=== PATIENT | male | born 1975 | race African-American/Black ===

== ENCOUNTER 2022-02-27 15:23 | Emergency (ER) | payer SELFPAY ==
[~2022-02-27] VITALS: Ht 177.8 cm; Wt 110.0 kg
[2022-02-27 15:32] VITALS: BP 147/93
== END 2022-02-27 16:41 | disposition left against medical advice (07) ==
LOC: ER 15:23
DX: Z53.21 Procedure and treatment not carried out due to patient leaving prior to being seen by health care provider (principal)

== ENCOUNTER 2025-02-15 10:58 | Emergency (ER) | payer MEDICAID ==
[~2025-02-15] VITALS: Ht 175.3 cm; Wt 82.0 kg
[2025-02-15 11:02] VITALS: O2SAT 99
[2025-02-15 11:52] LABS: BASOPHILS % 0.5 % (0.0-2.0); EOSINOPHILS % 0.1 % (0.0-5.0); HEMATOCRIT. 45.2 % (42.0-52.0); HEMOGLOBIN. 15.2 g/dL (14.0-18.0); LYMPHOCYTES % 15.7 % (20.0-50.0); MEAN CORPUSCULAR HEMOGLOBIN 30.4 pg (28.0-32.0); MEAN CORPUSCULAR HGB CONC 33.5 g/dL (31.0-37.0); MEAN CORPUSCULAR VOLUME 90.6 fL (80.0-94.0); MEAN PLATELET VOLUME 9.1 fl (7.4-10.4); MONOCYTES % 6.5 % (2.0-8.0); NEUTROPHILS % 77.2 % (40.0-76.0); PLATELET 312 x1000/uL (130-400); RED BLOOD CELL COUNT 4.99 mill/uL (4.7-6.1); RED CELL DISTRIBUTION WIDTH 13.8 % (11.6-14.6); WHITE BLOOD COUNT 8.1 x1000/uL (4.5-11.0)
[2025-02-15 12:07] LABS: CHLORIDE 105 mEq/L (98-107); SODIUM 140 mEq/L (136-145)
[2025-02-15 12:08] LABS: CALCIUM 10.1 mg/dL (8.7-10.4); CARBON DIOXIDE 25 mEq/L (21-32)
[2025-02-15 12:13] LABS: CREATININE 1.3 mg/dL (0.6-1.3); GLUCOSE 121 mg/dL (70-105); UREA NITROGEN BLOOD 6 mg/dL (9-23)
[2025-02-15 12:14] LABS: ETHANOL BLOOD < 10 mg/dL (<10)
[2025-02-15 12:15] LABS: ACETAMINOPHEN < 2 ug/mL (10-30)
[2025-02-15 13:29] LABS: CREATINE KINASE 242 IU/L (46-171)
[2025-02-15 15:42] VITALS: BP 132/71; PULSE 84; RESP 21; TEMP 37.6; O2SAT 97
== END 2025-02-15 17:10 | disposition left against medical advice (07) ==
LOC: ER 10:58
DX: R45.851 Suicidal ideations (principal); R51.9 Headache, unspecified; Z20.822 Contact with and (suspected) exposure to COVID-19
CPT/HCPCS: 36415; 80048; 80307; 80320; 80329; 82550; 82962; 85025; 87426; 99285; G0480